=== PATIENT | female | born 1980 | race African-American/Black ===

== ENCOUNTER 2021-07-11 07:46 | Inpatient (IN) | payer MEDICARE, MEDICAID ==
[~2021-07-11] VITALS: Ht 172.7 cm; Wt 157.9 kg
[2021-07-11] MEDS ORDERED: MORPHINE SULFATE 4 MG/ML CPJ (NOT FOR IM USE) IV STA (07:57)
[2021-07-11 08:50] LABS: CHLORIDE 110 mEq/L (98-107)
[2021-07-11 08:52] LABS: INR 1.1; PROTHROMBIN TIME 11.9 sec (9.6-11.0)
[2021-07-11 08:53] LABS: HCG SCREEN NEGATIVE
[2021-07-11] MEDS ORDERED: MORPHINE SULFATE 2 MG/ML CPJ (NOT FOR IM USE) IV NR (09:00)
[2021-07-11 09:18] LABS: BASOPHILS % 0.2 % (0.0-2.0); HEMATOCRIT. 39.3 % (36.0-48.0); HEMOGLOBIN. 12.4 g/dL (12.0-16.0); LYMPHOCYTES % 18.5 % (20.0-50.0); MEAN CORPUSCULAR VOLUME 69.8 fL (81.0-99.0); MEAN PLATELET VOLUME 7.9 fl (7.4-10.4); MONOCYTES % 8.5 % (2.0-8.0); NEUTROPHILS % 70.8 % (40.0-76.0); PLATELET 306 x1000/uL (130-400); RED BLOOD CELL COUNT 5.62 mill/uL (4.2-5.4); RED CELL DISTRIBUTION WIDTH 19.8 % (11.6-14.6)
[2021-07-11 09:40] LABS: BG BASE EXCESS -0.8 mmol/L (-2.0-2.0); BG CARBOXYHEMOGLOBIN 0.7 % (0.5-1.5); BG DEOXYHEMOGLOBIN 2.8 % (0.0-5.0); BG HCO3 ACT 23.1 mmol/L (22.0-26.0); BG METHEMOGLOBIN 0.5 % (0.0-1.5); BG OXYGEN SATURATION 97.2 % (92.0-98.5); BG PCO2 35.7 mmHg (35.0-45.0); BG PH 7.428 (7.350-7.450); BG PO2 91.9 mmHg (75.0-100.0); BG SAMPLE SITE RIGHT RADIAL; BG TOTAL HEMOGLOBIN 12.5 g/dL (12.0-18.0); BG VENT MODE ROOM AIR
[2021-07-11 09:56] LABS: PLATELET ESTIMATE NORMAL
[2021-07-11] MEDS ORDERED: ENOXAPARIN 80MG/0.8ML SYR SUBCUT ONE (10:30)
[2021-07-11] MEDS ORDERED: IOHEXOL-350 100 ML BOTTLE ONE (12:32)
[2021-07-11 12:40] VITALS: BP 134/62
[2021-07-11] MEDS ORDERED: ONDANSETRON HCL 4MG/2ML INJ IV PRN (13:00)
[2021-07-11] MEDS ORDERED: GUAIFENESIN 200MG/10ML SUGAR FREE UDC PO PRN (13:00)
[2021-07-11] MEDS ORDERED: AZITHROMYCIN 500MG/250ML 250 ML IV SCH (13:00)
[2021-07-11] MEDS ORDERED: CEFTRIAXONE 1 G PREMIX 50 ML IV SCH (13:00)
[2021-07-11] MEDS ORDERED: *PATIENT'S OWN MEDICATION STORAGE XX SCH (14:15)
[2021-07-11] MEDS: CEFTRIAXONE 1,000 MG in DEXTROSE 5% WATER 50 ML IV SCH (14:50)
[2021-07-11] MEDS ORDERED: HYDR25TA PO (15:37)
[2021-07-11] MEDS ORDERED: LOSA100T32 PO (15:37)
[2021-07-11] MEDS: AZITHROMYCIN 500MG in DEXTROSE 5% WATER 250ML IV SCH (15:58)
[2021-07-11 16:00] VITALS: BP 135/75
[2021-07-11] MEDS: ALBUTEROL 6.7GM HFA INHALER ORI SCH ×2 (17:03→23:08)
[2021-07-11] MEDS: ENOXAPARIN 150MG/ML SYR SUBCUT SCH (17:03)
[2021-07-11 20:00] VITALS: BP 116/58
[2021-07-11 20:23] LABS: CLARITY URINE CLEAR (CLEAR); COLOR URINE YELLOW (YELLOW); KETONES URINE NEGATIVE (NEGATIVE); LEUKOCYTE ESTERASE URINE NEGATIVE (NEGATIVE); NITRITE URINE NEGATIVE (NEGATIVE); OCCULT BLOOD URINE NEGATIVE (NEGATIVE); PROTEIN URINE 1+ (NEGATIVE); SPECIFIC GRAVITY URINE 1.071 (1.005-1.030)
[2021-07-11] MEDS: ACETAMINOPHEN 325MG TABLET PO PRN (20:26)
[2021-07-11] MEDS: GUAIFENESIN 600MG ER TABLET PO SCH (20:26)
[2021-07-12] VITALS: BP 102/56
[2021-07-12] MEDS: ACETAMINOPHEN 325MG TABLET PO PRN ×3 (01:13→21:39)
[2021-07-12 04:00] VITALS: BP 99/68
[2021-07-12] MEDS: ENOXAPARIN 150MG/ML SYR SUBCUT SCH ×2 (05:19→17:02)
[2021-07-12] MEDS: ALBUTEROL 6.7GM HFA INHALER ORI SCH ×3 (05:19→17:06)
[2021-07-12] MEDS ORDERED: NALOXONE HCL 0.4MG/ML VIAL IV PRN (06:00)
[2021-07-12] MEDS: HYDROCODONE/ACETAMINOPHEN 5/325MG TABLET PO PRN ×4 (06:02→21:40)
[2021-07-12 08:00] VITALS: BP 126/79
[2021-07-12] MEDS: GUAIFENESIN 600MG ER TABLET PO SCH ×2 (08:13→21:39)
[2021-07-12] MEDS: CEFTRIAXONE 1,000 MG in DEXTROSE 5% WATER 50 ML IV SCH (11:35)
[2021-07-12 12:00] VITALS: BP 114/75
[2021-07-12 12:17] LABS: BASOPHILS % 0.4 % (0.0-2.0); EOSINOPHILS % 2.7 % (0.0-5.0); HEMATOCRIT. 37.7 % (36.0-48.0); HEMOGLOBIN. 11.4 g/dL (12.0-16.0); LYMPHOCYTES % 23.3 % (20.0-50.0); MEAN CORPUSCULAR HEMOGLOBIN 21.6 pg (28.0-32.0); MEAN CORPUSCULAR VOLUME 71.1 fL (81.0-99.0); MEAN PLATELET VOLUME 7.8 fl (7.4-10.4); MONOCYTES % 9.7 % (2.0-8.0); NEUTROPHILS % 63.9 % (40.0-76.0); PLATELET 375 x1000/uL (130-400); RED CELL DISTRIBUTION WIDTH 19.8 % (11.6-14.6)
[2021-07-12 12:26] LABS: CHLORIDE 110 mEq/L (98-107)
[2021-07-12 12:37] LABS: LDL CHOLESTEROL 77 mg/dL (5-100)
[2021-07-12 12:38] LABS: HDL CHOLESTEROL 36 mg/dL (40-59)
[2021-07-12] MEDS: AZITHROMYCIN 500MG in DEXTROSE 5% WATER 250ML IV SCH (13:18)
[2021-07-12 16:00] VITALS: BP 114/85
[2021-07-12] MEDS: PREDNISONE 20MG TABLET PO SCH (17:17)
[2021-07-12 20:00] VITALS: BP 125/90
[2021-07-13] VITALS: BP 122/74
[2021-07-13 04:00] VITALS: BP 134/71
[2021-07-13] MEDS: HYDROCODONE/ACETAMINOPHEN 5/325MG TABLET PO PRN (06:03)
[2021-07-13] MEDS: ENOXAPARIN 150MG/ML SYR SUBCUT SCH ×2 (06:03→17:19)
[2021-07-13] MEDS: ALBUTEROL 6.7GM HFA INHALER ORI SCH ×4 (06:30→17:19)
[2021-07-13 08:00] VITALS: BP 126/70
[2021-07-13] MEDS: GUAIFENESIN 600MG ER TABLET PO SCH ×2 (09:04→21:04)
[2021-07-13] MEDS: PREDNISONE 20MG TABLET PO SCH ×2 (09:04→17:19)
[2021-07-13] MEDS: CEFTRIAXONE 1,000 MG in DEXTROSE 5% WATER 50 ML IV SCH (11:36)
[2021-07-13] MEDS: AZITHROMYCIN 500 MG TABLET PO SCH (11:37)
[2021-07-13 12:00] VITALS: BP 138/72
[2021-07-13 16:00] VITALS: BP 143/90
[2021-07-13 20:00] VITALS: BP 163/95
[2021-07-14] VITALS: BP 186/100
[2021-07-14] MEDS: CLONIDINE 0.1MG TABLET PO PRN ×2 (01:09→06:34)
[2021-07-14] MEDS: ALBUTEROL 6.7GM HFA INHALER ORI SCH ×3 (01:13→11:17)
[2021-07-14 01:40] VITALS: BP 155/80
[2021-07-14 04:00] VITALS: BP 167/89
[2021-07-14] MEDS: ENOXAPARIN 150MG/ML SYR SUBCUT SCH (06:34)
[2021-07-14 08:00] VITALS: BP 155/91
[2021-07-14] MEDS: GUAIFENESIN 600MG ER TABLET PO SCH (08:30)
[2021-07-14] MEDS: PREDNISONE 20MG TABLET PO SCH (08:30)
[2021-07-14] MEDS: AZITHROMYCIN 500 MG TABLET PO SCH (11:16)
[2021-07-14] MEDS: CEFTRIAXONE 1,000 MG in DEXTROSE 5% WATER 50 ML IV SCH (11:17)
[2021-07-14 12:00] VITALS: BP 166/83
[2021-07-14 12:58] VITALS: BP 155/91
== END 2021-07-14 15:00 | disposition home or self-care (01) | DRG 871 ==
LOC: ER 07:58 → 7WST 10:47 → EDBEDREQ 10:49 → EDBEDREQSVC 10:49 → ENRESERV 11:47 → 7EST 07-13 13:56
PROVIDERS: ADMIT Hospitalist; ATTEND Hospitalist
DX: A41.89 Other specified sepsis (principal); U07.1 COVID-19; J12.82 Pneumonia due to coronavirus disease 2019; J96.00 Acute respiratory failure, unspecified whether with hypoxia or hypercapnia; I26.99 Other pulmonary embolism without acute cor pulmonale; E44.1 Mild protein-calorie malnutrition; N17.9 Acute kidney failure, unspecified; R04.2 Hemoptysis; Z68.43 Body mass index [BMI] 50.0-59.9, adult; I10 Essential (primary) hypertension; J45.909 Unspecified asthma, uncomplicated; J20.8 Acute bronchitis due to other specified organisms; Z79.899 Other long term (current) drug therapy
CPT/HCPCS: 36415; 36600; 71045; 71275; 80053; 80061; 81003; 82375; 82805; 83605; 84145; 84484; 84703; 85025; 85379; 87426; 87804; 93005; 93306; 93970; 99285; J0456; J0696; J1650; J2270; J7040; J7060; J7512; Q9967; U0003; U0005